=== PATIENT | female | born 1985 | race Caucasian/White ===

== ENCOUNTER 2016-05-05 00:41 | Emergency (ER) | payer SELFPAY ==
[~2016-05-05] VITALS: Ht 170.1 cm; Wt 63.5 kg
[2016-05-05 01:16] LABS: BASO # 0.1 10*3/uL (0.0-0.1); BASO % 0.6 % (0.0-1.0); EOS # 0.6 10*3/uL (0.0-0.4); EOS % 6.2 % (1.0-4.0); HEMATOCRIT 44.6 % (37.0-47.0); HEMOGLOBIN 14.9 g/dl (12.0-16.0); LYMPH # 2.8 10*3/uL (1.3-4.4); LYMPH % 29.6 % (27.0-41.0); MEAN CELL VOLUME 97.2 fl (81.0-99.0); MEAN CORPUSCULAR HGB 32.5 pg (27.0-31.0); MEAN CORPUSCULAR HGB CONC 33.4 g/dl (33.0-37.0); MONO # 0.6 10*3/uL (0.1-1.0); MONO % 6.7 % (3.0-9.0); NEUT # 5.4 10*3/uL (2.3-7.9); NEUT % 56.8 % (47.0-73.0); PLATELET COUNT AUTOMATED 231 10*3/uL (130-400); RED BLOOD COUNT 4.59 10*6/uL (4.10-5.10); RED CELL DISTRI WIDTH 12.4 % (0-14.5); WHITE BLOOD COUNT 9.5 10*3/uL (4.8-10.8)
[2016-05-05 01:34] LABS: ALBUMIN 3.7 gm/dl (3.1-4.5); BILIRUBIN, TOTAL 0.2 mg/dl (0.2-1.0); POTASSIUM 3.3 mmol/L (3.5-5.1); TOTAL PROTEIN 7.4 gm/dL (6.4-8.2)
[2016-05-05 01:36] LABS: URINE AMPHETAMINES < 1000 (1000ng/ml); URINE BARBITURATES < 200 (200ng/ml); URINE COCAINE < 300 (300ng/ml)
[2016-05-05 10:37] LABS: CHLORIDE 108 mmol/L (98-107); SODIUM 147 mmol/L (136-145)
[2016-05-05 10:44] LABS: ALKALINE PHOSPHATASE 60 U/L (45-117); BILIRUBIN, TOTAL 0.2 mg/dl (0.2-1.0); BUN 12 mg/dl (7-24); CARBON DIOXIDE 28 mmol/L (21-32); EST GLOM FILT AFRICAN AMERICAN > 60 ml/min; GLUCOSE 104 mg/dL (65-99); SGOT/AST 9 IU/L (3-35); SGPT/ALT 20 U/L (12-78); TOTAL PROTEIN 7.9 gm/dL (6.4-8.2)
[2016-05-05 10:48] LABS: POTASSIUM 4.7 mmol/L (3.5-5.1)
[2016-05-05] MEDS ORDERED: Motrin,Rufen800 MG PO (15:58)
== END 2016-05-05 16:16 | disposition home or self-care (01) ==
LOC: ED 00:41
PROVIDERS: Emergency Medicine; Emergency Medicine Emergency Medical Services
DX: F32.9 Major depressive disorder, single episode, unspecified (principal)

== ENCOUNTER 2016-09-16 22:43 | Emergency (ER) | payer SELFPAY ==
[~2016-09-16] VITALS: Ht 170.1 cm; Wt 61.8 kg
[~2016-09-16 22:43] MED LIST: Motrin,Rufen800 MG PO
[2016-09-16] MEDS ORDERED: TOBREX OPHTH S2.5 ML OPH (23:06)
== END 2016-09-16 23:30 | disposition home or self-care (01) ==
LOC: ED 22:43
DX: S00.12XA Contusion of left eyelid and periocular area, initial encounter (principal); F17.200 Nicotine dependence, unspecified, uncomplicated; Y93.89 Activity, other specified; W22.8XXA Striking against or struck by other objects, initial encounter; Y92.9 Unspecified place or not applicable; Y99.9 Unspecified external cause status

== ENCOUNTER 2017-11-09 11:32 | Emergency (ER) | payer SELFPAY ==
[~2017-11-09] VITALS: Ht 170.1 cm; Wt 56.7 kg
[~2017-11-09 11:32] MED LIST changes: +SEPTDS PO; +TOBREX OPHTH S2.5 ML OPH
[2017-11-09] MEDS ORDERED: CEPHALEXIN500 M1 PO (12:29)
== END 2017-11-09 12:39 | disposition home or self-care (01) ==
LOC: ED 11:32
DX: L02.11 Cutaneous abscess of neck (principal)

== ENCOUNTER → 2018-05-26 | Outpatient (CLI) | payer OTHER ==
[~2018-05-26] MED LIST changes: +AMOXICILLIN500 M2 PO; +CEPHALEXIN500 M1 PO; +DELTASONE20 M1 PO; +TESSALON PERLE100 M1 PO
[2018-05-26 12:27] LABS: BASO # 0.1 10*3/uL (0.0-0.1); BASO % 0.7 % (0.0-1.0); EOS # 0.8 10*3/uL (0.0-0.4); EOS % 8.1 % (1.0-4.0); HEMATOCRIT 45.8 % (37.0-47.0); HEMOGLOBIN 14.9 g/dl (12.0-16.0); LYMPH # 2.4 10*3/uL (1.3-4.4); LYMPH % 23.1 % (27.0-41.0); MEAN CORPUSCULAR HGB 33.2 pg (27.0-31.0); MEAN CORPUSCULAR HGB CONC 32.5 g/dl (33.0-37.0); MEAN PLATELET VOLUME 9.6 fl (9.6-12.3); MONO # 0.6 10*3/uL (0.1-1.0); MONO % 5.4 % (3.0-9.0); NEUT # 6.4 10*3/uL (2.3-7.9); NEUT % 62.4 % (47.0-73.0); PLATELET COUNT AUTOMATED 243 10*3/uL (130-400); RED BLOOD COUNT 4.49 10*6/uL (4.10-5.10); RED CELL DISTRI WIDTH 12.2 % (0-14.5); WHITE BLOOD COUNT 10.3 10*3/uL (4.8-10.8)
[2018-05-26 12:30] LABS: BILIRUBIN NEGATIVE (NEGATIVE); BLOOD NEGATIVE (NEGATIVE); CLARITY CLEAR (CLEAR); COLOR YELLOW (YELLOW); GLUCOSE NEGATIVE (NEGATIVE); KETONE NEGATIVE (NEGATIVE); LEUKO ESTERASE NEGATIVE (NEGATIVE); NITRITE NEGATIVE (NEGATIVE); PH 6.5 (5.0-9.0); SPECIFIC GRAVITY 1.015 (1.005-1.030); UROBILINOGEN 0.2 E.U./dl (0.2-1.0)
[2018-05-26 12:57] LABS: ALBUMIN 3.5 gm/dl (3.1-4.5); ALKALINE PHOSPHATASE 56 U/L (45-117); BUN 16 mg/dl (7-24); CHLORIDE 107 mmol/L (98-107); CREATININE 1.05 mg/dL (0.55-1.02); POTASSIUM 4.5 mmol/L (3.5-5.1); SGOT/AST 11 IU/L (3-35); SGPT/ALT 19 U/L (12-78); SODIUM 139 mmol/L (136-145); THYROXINE (T4) TOTAL 6.6 ug/dl (4.8-13.9); TOTAL PROTEIN 6.9 gm/dL (6.4-8.2)
[2018-05-26 13:04] LABS: THYROID STIM HORMONE (HS) 0.847 uIU/ml (0.358-4.75)
[2018-05-26 13:47] LABS: BACTERIA 1+; WBC 0-2 wbc/hpf (0-5)
[2018-05-27 08:11] LABS: HEPATITIS B SURFACE AG Negative (Negative); HEPATITIS C VIRUS ANTIBODY 0.1 s/co (0.0-0.9)
== END | disposition home or self-care (01) ==
LOC: LAB 11:58
PROVIDERS: Nurse Practitioner Primary Care
DX: E03.9 Hypothyroidism, unspecified (principal); G47.00 Insomnia, unspecified; E56.1 Deficiency of vitamin K; F50.2 Bulimia nervosa

== ENCOUNTER 2018-06-25 13:43 | Emergency (ER) | payer OTHER ==
[~2018-06-25] VITALS: Ht 172.7 cm; Wt 65.8 kg
[~2018-06-25 13:43] MED LIST changes: -AMOXICILLIN500 M2 PO; -DELTASONE20 M1 PO; -TESSALON PERLE100 M1 PO
[2018-06-25] MEDS ORDERED: DELTASONE20 M1 PO (14:25)
[2018-06-25] MEDS ORDERED: TESSALON PERLE100 M1 PO (14:25)
[2018-06-25] MEDS ORDERED: AMOXICILLIN500 M2 PO (14:25)
== END 2018-06-25 14:52 | disposition home or self-care (01) ==
LOC: ED 13:43
DX: J32.9 Chronic sinusitis, unspecified (principal); J40 Bronchitis, not specified as acute or chronic; F17.200 Nicotine dependence, unspecified, uncomplicated

== ENCOUNTER 2019-01-25 12:58 | Emergency (ER) | payer OTHER ==
[~2019-01-25] VITALS: Ht 172.7 cm; Wt 61.2 kg
[~2019-01-25 12:58] MED LIST changes: +AMOXICILLIN500 M2 PO; +DELTASONE20 M1 PO; +TESSALON PERLE100 M1 PO
[2019-01-25] MEDS ORDERED: DOXYCYCLINE100 M3 PO (13:24)
[2019-01-25] MEDS ORDERED: IBUPROFEN600 MG PO (13:24)
[2019-01-25] MEDS ORDERED: ANTIBIOTIC28.4 GM T (14:01)
== END 2019-01-25 14:10 | disposition home or self-care (01) ==
LOC: ED 12:58
DX: L02.01 Cutaneous abscess of face (principal)

== ENCOUNTER 2019-12-22 13:19 | Emergency (ER) | payer OTHER ==
[~2019-12-22] VITALS: Ht 172.7 cm; Wt 61.2 kg
[~2019-12-22 13:19] MED LIST changes: +ANTIBIOTIC28.4 GM T; +DOXYCYCLINE100 M3 PO; +IBUPROFEN600 MG PO
[2019-12-22] MEDS ORDERED: AUGMENTIN 875875 MG PO ×3 (13:40→14:08)
[2019-12-22] MEDS ORDERED: FLONASE ALLERG9.9 ML NAS ×3 (13:40→14:08)
== END 2019-12-22 13:46 | disposition home or self-care (01) ==
LOC: ED 13:19
DX: J01.90 Acute sinusitis, unspecified (principal); F17.200 Nicotine dependence, unspecified, uncomplicated; Z79.2 Long term (current) use of antibiotics; Z79.899 Other long term (current) drug therapy

== ENCOUNTER → 2020-04-06 | Outpatient (CLI) | payer OTHER ==
[~2020-04-06] MED LIST changes: +AUGMENTIN 875875 MG PO; +FLONASE ALLERG9.9 ML NAS
[2020-04-06 16:04] LABS: BASO % 0.4 % (0.0-1.0); EOS # 0.4 10*3/uL (0.0-0.4); EOS % 3.7 % (1.0-4.0); HEMATOCRIT 46.2 % (37.0-47.0); LYMPH # 2.7 10*3/uL (1.3-4.4); LYMPH % 26.4 % (27.0-41.0); MEAN CELL VOLUME 95.3 fl (81.0-99.0); MEAN CORPUSCULAR HGB 31.1 pg (27.0-31.0); MEAN CORPUSCULAR HGB CONC 32.7 g/dl (33.0-37.0); MEAN PLATELET VOLUME 9.8 fl (9.6-12.3); MONO # 0.6 10*3/uL (0.1-1.0); MONO % 5.7 % (3.0-9.0); NEUT # 6.6 10*3/uL (2.3-7.9); NEUT % 63.5 % (47.0-73.0); PLATELET COUNT AUTOMATED 283 10*3/uL (130-400); RED BLOOD COUNT 4.85 10*6/uL (4.10-5.10); RED CELL DISTRI WIDTH 12.4 % (0-14.5); WHITE BLOOD COUNT 10.4 10*3/uL (4.8-10.8)
[2020-04-06 16:26] LABS: ALBUMIN 3.7 gm/dl (3.1-4.5); ALKALINE PHOSPHATASE 56 U/L (45-117); BILIRUBIN, DIRECT 0.1 mg/dL (0.0-0.2); BUN 10 mg/dl (7-24); CHLORIDE 106 mmol/L (98-107); CREATININE 0.88 mg/dL (0.55-1.02); POTASSIUM 3.4 mmol/L (3.5-5.1); SGOT/AST 10 IU/L (3-35); SGPT/ALT 17 U/L (12-78); SODIUM 141 mmol/L (136-145)
[2020-04-07 08:07] LABS: HEP B CORE AB, IGM Negative (Negative); HEPATITIS B SURFACE AG Negative (Negative); HEPATITIS C VIRUS ANTIBODY <0.1 s/co (0.0-0.9)
[2020-04-10 14:06] LABS: TB1 Ag VALUE 0.17 IU/mL (.)
== END | disposition home or self-care (01) ==
LOC: LAB 15:03
PROVIDERS: ATTEND Anesthesiology Addiction Medicine
DX: F14.11 Cocaine abuse, in remission (principal); F11.20 Opioid dependence, uncomplicated